=== PATIENT | male | born 1945 | race Caucasian/White ===

== ENCOUNTER 2023-07-18 20:30 | Inpatient (IN) | payer OTHER ==
[~2023-07-18] VITALS: Ht 167.6 cm; Wt 87.7 kg
[2023-07-18] MEDS ORDERED: ONDANSETRON 4 MG/2 ML VIAL IV PRN (21:30)
[2023-07-18] MEDS ORDERED: ZOLPIDEM 5 MG TABLET PO PRN (21:30)
[2023-07-18] MEDS ORDERED: MAGNESIUM HYDROXIDE 30 ML LIQUID UDC PO PRN (21:30)
[2023-07-18] MEDS ORDERED: REMEDY ESSENTIAL ZINC PASTE 113 GM TP PRN (21:30)
[2023-07-18] MEDS ORDERED: REMEDY ESSENTIAL ZINC PASTE 113 GM TOP PRN (21:45)
[2023-07-18] MEDS ORDERED: ACET325T53 PO (21:49)
[2023-07-18] MEDS ORDERED: ALBU2.5V13 NEB (21:49)
[2023-07-18] MEDS ORDERED: HEPA500034 SQ (21:49)
[2023-07-18] MEDS ORDERED: MEMA10TA PO (21:49)
[2023-07-18] MEDS ORDERED: NIFE20CA8 PO (21:49)
[2023-07-18] MEDS ORDERED: DONE23TA3 PO (21:49)
[2023-07-18] MEDS ORDERED: EPOE200012 IJ (21:49)
[2023-07-18] MEDS ORDERED: ASPI-495 PO (21:49)
[2023-07-18] MEDS ORDERED: ALBU2.5V13 IH (21:49)
[2023-07-18] MEDS ORDERED: MELA5TAB20 PO (21:49)
[2023-07-18] MEDS ORDERED: DICL100G31 TP (21:49)
[2023-07-18] MEDS ORDERED: LACT1CAP57 PO (21:49)
[2023-07-18] MEDS ORDERED: IPRA0.2S48 NEB ×2 (21:49)
[2023-07-18] MEDS ORDERED: PANT40TA49 PO (21:49)
[2023-07-18] MEDS ORDERED: LIDO30AD10 TP ×2 (21:49)
[2023-07-18] MEDS ORDERED: CYAN100085 PO (21:49)
[2023-07-18 21:57] VITALS: BP 142/81; TEMP 99.2; O2SAT 92
[2023-07-19 05:40] VITALS: BP 152/77; TEMP 97.7; O2SAT 94
[2023-07-19] MEDS: PANTOPRAZOLE SODIUM 40 MG TABLET.DR PO SCH (06:05)
[2023-07-19 06:31] LABS: BASOPHILS # (AUTO) 0.1 K/UL (0.0-0.2); BASOPHILS % (AUTO) 0.9 % (0.0-2.0); EOSINOPHILS % (AUTO) 0.7 % (0.0-7.0); HEMATOCRIT 28.2 % (36.7-47.1); HEMOGLOBIN 9.8 g/dL (12.5-16.3); LYMPHOCYTES # (AUTO) 0.8 K/uL (0.8-4.8); LYMPHOCYTES % (AUTO) 11.5 % (20.5-51.5); MEAN CORPUSCULAR HEMOGLOBIN 32.5 uug (23.8-33.4); MEAN CORPUSCULAR HGB CONC 35 g/dL (32.5-36.3); MEAN CORPUSCULAR VOLUME 93.9 fL (73.0-96.2); MONOCYTES # (AUTO) 0.6 K/uL (0.1-1.30); NEUTROPHILS # (AUTO) 5.4 K/uL (1.8-8.9); NEUTROPHILS % (AUTO) 77.9 % (38.5-71.5); PLATELET COUNT (AUTO) 300 K/uL (152-348); RED BLOOD CELL COUNT(AUTO) 3.01 MIL/uL (4.06-5.63); RED CELL DISTRIBUTION WIDTH 13.8 % (12.1-16.2)
[2023-07-19 06:46] LABS: CALCIUM 8.5 mg/dL (8.5-10.1); CARBON DIOXIDE 29 mmol/L (21-32); CHLORIDE 104 mmol/L (98-107); CREATININE 2.3 mg/dL (0.6-1.3); GLUCOSE 107 mg/dL (74-106); MAGNESIUM 1.8 mg/dL (1.8-2.4); PHOSPHOROUS 3.1 mg/dL (2.5-4.9); POTASSIUM 3.7 mmol/L (3.5-5.1); SODIUM SERUM 139 mmol/L (136-145); UREA NITROGEN, BLOOD 36 mg/dL (7-18)
[2023-07-19 06:56] LABS: DIFFERENTIAL COMMENT 1
[2023-07-19 07:29] LABS: CHOLESTEROL 75 mg/dL (<200); HDL CHOLESTEROL 28 mg/dL (40-60); TRIGLYCERIDES 80 MG/DL (30-150)
[2023-07-19 08:00] VITALS: BP 144/79; TEMP 99.1; O2SAT 94
[2023-07-19] MEDS: HYDROCODONE/APAP 5-325MG TABLET PO PRN (09:16)
[2023-07-19] MEDS ORDERED: MELA3CAP2 PO (10:28)
[2023-07-19] MEDS ORDERED: MEMA5TAB PO (10:38)
[2023-07-19] MEDS ORDERED: DONE10TA44 PO (10:40)
[2023-07-19 16:13] VITALS: BP 148/67; TEMP 98.4; O2SAT 92
[2023-07-19] MEDS ORDERED: EPOETIN ALFA 20,000 UNIT/ML ML IJ SCH (16:45)
[2023-07-19] MEDS ORDERED: ALBUTEROL SULFATE 2.5 MG/3 ML NEBU NEB PRN (16:45)
[2023-07-19] MEDS ORDERED: HOME MED MISCELLANEOUS XX SCH ×2 (16:45)
[2023-07-19] MEDS ORDERED: ACETAMINOPHEN 325 MG TABLET-SA PATIENTS-PAIN ONLY PO PRN (16:45)
[2023-07-19] MEDS: CULTURELLE CAPSULE PO SCH (17:22)
[2023-07-19] MEDS: NIFEdipine XL 30 MG TABSR PO SCH (17:22)
[2023-07-19 19:58] VITALS: BP 119/70; TEMP 98.1; O2SAT 94
[2023-07-19] MEDS: DOCUSATE SODIUM 100 MG CAPSULE PO SCH (20:37)
[2023-07-19] MEDS: DONEPEZIL 10 MG TABLET PO SCH (20:37)
[2023-07-19] MEDS: HEPARIN SODIUM,PORCINE 5,000 UNITS/ML VIAL SQ SCH (20:38)
[2023-07-20 05:33] VITALS: BP 135/70; TEMP 98.6; O2SAT 95
[2023-07-20 06:37] LABS: BASOPHILS # (AUTO) 0.1 K/UL (0.0-0.2); EOSINOPHILS # (AUTO) 0.1 K/uL (0.0-0.7); EOSINOPHILS % (AUTO) 0.8 % (0.0-7.0); HEMATOCRIT 27.3 % (36.7-47.1); HEMOGLOBIN 9.4 g/dL (12.5-16.3); LYMPHOCYTES % (AUTO) 13.1 % (20.5-51.5); MEAN CORPUSCULAR HEMOGLOBIN 32.2 uug (23.8-33.4); MEAN CORPUSCULAR HGB CONC 34 g/dL (32.5-36.3); MEAN CORPUSCULAR VOLUME 93.3 fL (73.0-96.2); MONOCYTES # (AUTO) 0.6 K/uL (0.1-1.30); MONOCYTES % (AUTO) 8.7 % (0.0-11.0); NEUTROPHILS # (AUTO) 5.7 K/uL (1.8-8.9); NEUTROPHILS % (AUTO) 76.4 % (38.5-71.5); PLATELET COUNT (AUTO) 296 K/uL (152-348); RED BLOOD CELL COUNT(AUTO) 2.92 MIL/uL (4.06-5.63); RED CELL DISTRIBUTION WIDTH 13.8 % (12.1-16.2); WHITE BLOOD COUNT (AUTO) 7.5 K/uL (3.6-10.2)
[2023-07-20] MEDS: PANTOPRAZOLE SODIUM 40 MG TABLET.DR PO SCH (06:40)
[2023-07-20 06:50] LABS: ALANINE AMINOTRANSFERASE 29 U/L (16-63); ALBUMIN 1.7 g/dL (3.4-5.0); ALKALINE PHOSPHATASE 98 U/L (50-136); ASPARTATE AMINOTRANSFERASE 22 U/L (15-37); BILIRUBIN,TOTAL 0.3 mg/dL (0.2-1.0); CALCIUM 8.7 mg/dL (8.5-10.1); CARBON DIOXIDE 28 mmol/L (21-32); CHLORIDE 103 mmol/L (98-107); CREATINE KINASE, TOTAL 20 U/L (39-308); CREATININE 2.3 mg/dL (0.6-1.3); GLUCOSE 107 mg/dL (74-106); MAGNESIUM 1.7 mg/dL (1.8-2.4); PHOSPHOROUS 3.6 mg/dL (2.5-4.9); POTASSIUM 3.6 mmol/L (3.5-5.1); SODIUM SERUM 137 mmol/L (136-145); TOTAL PROTEIN, SERUM 7.3 g/dL (6.4-8.2); UREA NITROGEN, BLOOD 34 mg/dL (7-18)
[2023-07-20 07:05] LABS: DIFFERENTIAL COMMENT 1
[2023-07-20 07:38] LABS: *BILIRUBIN,URIN NEGATIVE (NEGATIVE); *CLARITY,URINE CLEAR (CLEAR); *COLOR,URINE YELLOW (YELLOW); *KETONES,URINE NEGATIVE (NEGATIVE); *PROTEIN,URINE 1+ (NEGATIVE); LEUKOCYTE ESTERASE ,URINE NEGATIVE (NEGATIVE); NITRITE, URINE NEGATIVE (NEGATIVE); UGLUCOSE NEGATIVE (NEGATIVE)
[2023-07-20 07:42] LABS: *BLOOD, URINE TRACE (NEGATIVE)
[2023-07-20 07:54] LABS: *CREATININE,URINE 107.9 mg/dL (30-125); *URINE TOTAL PROTEIN RANDOM 53.9 mg/dL (<150/24HR)
[2023-07-20 07:55] VITALS: O2SAT 95
[2023-07-20 08:00] VITALS: BP 122/77; TEMP 100.7; O2SAT 94
[2023-07-20] MEDS: OXYCODONE/APAP 5-325 MG TABLET PO SCH ×2 (08:25→20:16)
[2023-07-20] MEDS: MEMANTINE HCL 5 MG TABLET PO SCH (08:25)
[2023-07-20] MEDS: CULTURELLE CAPSULE PO SCH ×2 (08:25→17:29)
[2023-07-20] MEDS: LIDOCAINE 5% PATCH TD SCH (08:26)
[2023-07-20] MEDS: NIFEdipine XL 30 MG TABSR PO SCH (08:26)
[2023-07-20] MEDS: ACETAMINOPHEN 325 MG TABLET PO PRN (08:26)
[2023-07-20] MEDS: ASPIRIN EC 81 MG TABLET.DR PO SCH (08:26)
[2023-07-20] MEDS: CYANOCOBALAMIN 1,000 MCG TABLET PO SCH (08:26)
[2023-07-20] MEDS: HEPARIN SODIUM,PORCINE 5,000 UNITS/ML VIAL SQ SCH ×2 (08:28→20:17)
[2023-07-20] MEDS ORDERED: PIPERACILLIN/TAZO 2.25 G in IV DEXTROSE 5% 50 ML IV SCH (09:00)
[2023-07-20] MEDS ORDERED: PANTOPRAZOLE SODIUM 40 MG TABLET.DR PO SCH (09:00)
[2023-07-20] MEDS ORDERED: MAGNESIUM OXIDE 400 MG TABLET PO ONE (10:00)
[2023-07-20 10:27] LABS: RBC,URINE 0-3 /HPF (0-3); WBC,URINE 0-3 /HPF (0-3)
[2023-07-20] MEDS ORDERED: PRAV10TA40 PO (14:27)
[2023-07-20 16:00] VITALS: BP 101/50; TEMP 98.2; O2SAT 95
[2023-07-20] MEDS: ENSURE ENLIVE (VAN) 240 ML LIQUID PO SCH (17:31)
[2023-07-20 19:44] VITALS: BP 113/65; TEMP 98.3; O2SAT 95
[2023-07-20] MEDS: DOCUSATE SODIUM 100 MG CAPSULE PO SCH (20:15)
[2023-07-20] MEDS: DONEPEZIL 10 MG TABLET PO SCH (20:16)
[2023-07-21 04:36] VITALS: BP 119/62; TEMP 98.5; O2SAT 94
[2023-07-21] MEDS: PANTOPRAZOLE SODIUM 40 MG TABLET.DR PO SCH (06:43)
[2023-07-21 07:29] LABS: BASOPHILS # (AUTO) 0.1 K/UL (0.0-0.2); BASOPHILS % (AUTO) 1.2 % (0.0-2.0); EOSINOPHILS # (AUTO) 0.1 K/uL (0.0-0.7); EOSINOPHILS % (AUTO) 1.5 % (0.0-7.0); HEMATOCRIT 26.8 % (36.7-47.1); HEMOGLOBIN 9.2 g/dL (12.5-16.3); LYMPHOCYTES # (AUTO) 1.1 K/uL (0.8-4.8); LYMPHOCYTES % (AUTO) 14.5 % (20.5-51.5); MEAN CORPUSCULAR HEMOGLOBIN 32.4 uug (23.8-33.4); MEAN CORPUSCULAR HGB CONC 34 g/dL (32.5-36.3); MEAN CORPUSCULAR VOLUME 94.2 fL (73.0-96.2); MONOCYTES # (AUTO) 0.7 K/uL (0.1-1.30); MONOCYTES % (AUTO) 8.7 % (0.0-11.0); NEUTROPHILS # (AUTO) 5.6 K/uL (1.8-8.9); NEUTROPHILS % (AUTO) 74.1 % (38.5-71.5); PLATELET COUNT (AUTO) 261 K/uL (152-348); RED BLOOD CELL COUNT(AUTO) 2.84 MIL/uL (4.06-5.63); RED CELL DISTRIBUTION WIDTH 13.4 % (12.1-16.2); WHITE BLOOD COUNT (AUTO) 7.5 K/uL (3.6-10.2)
[2023-07-21 07:45] VITALS: O2SAT 93
[2023-07-21 07:49] LABS: CALCIUM 8.3 mg/dL (8.5-10.1); CARBON DIOXIDE 32 mmol/L (21-32); CHLORIDE 104 mmol/L (98-107); CREATININE 2.5 mg/dL (0.6-1.3); GLUCOSE 103 mg/dL (74-106); POTASSIUM 4.2 mmol/L (3.5-5.1); SODIUM SERUM 140 mmol/L (136-145); UREA NITROGEN, BLOOD 41 mg/dL (7-18)
[2023-07-21 07:55] LABS: DIFFERENTIAL COMMENT 1
[2023-07-21 08:00] VITALS: BP 134/59; TEMP 98.5; O2SAT 93
[2023-07-21] MEDS: ENSURE ENLIVE (VAN) 240 ML LIQUID PO SCH ×2 (08:00→16:53)
[2023-07-21 08:06] LABS: PTH, INTACT 41 pg/mL (15-65)
[2023-07-21] MEDS: ASPIRIN EC 81 MG TABLET.DR PO SCH (09:00)
[2023-07-21] MEDS: OXYCODONE/APAP 5-325 MG TABLET PO SCH ×2 (09:00→10:00)
[2023-07-21] MEDS ORDERED: MAGNESIUM OXIDE 400 MG TABLET PO ONE (09:30)
[2023-07-21] MEDS: LIDOCAINE 5% PATCH TD SCH (10:12)
[2023-07-21] MEDS: CULTURELLE CAPSULE PO SCH ×2 (10:14→16:53)
[2023-07-21] MEDS: NIFEdipine XL 30 MG TABSR PO SCH (10:15)
[2023-07-21] MEDS: CYANOCOBALAMIN 1,000 MCG TABLET PO SCH (10:16)
[2023-07-21] MEDS: DONEPEZIL 10 MG TABLET PO SCH ×2 (10:16→20:54)
[2023-07-21] MEDS: HEPARIN SODIUM,PORCINE 5,000 UNITS/ML VIAL SQ SCH ×2 (10:24→21:01)
[2023-07-21] MEDS: MEMANTINE HCL 5 MG TABLET PO SCH (10:25)
[2023-07-21 16:00] VITALS: BP 106/64; TEMP 100.3; O2SAT 93
[2023-07-21] MEDS: HYDROCODONE/APAP 5-325MG TABLET PO PRN (16:15)
[2023-07-21 20:36] VITALS: BP 122/62; TEMP 98.9; O2SAT 93
[2023-07-21] MEDS: DOCUSATE SODIUM 100 MG CAPSULE PO SCH (20:54)
[2023-07-22 04:20] VITALS: BP 140/74; TEMP 98.2; O2SAT 93
[2023-07-22] MEDS: PANTOPRAZOLE SODIUM 40 MG TABLET.DR PO SCH (06:21)
[2023-07-22 07:18] LABS: HEMATOCRIT 29.3 % (36.7-47.1); MEAN CORPUSCULAR HEMOGLOBIN 32.2 uug (23.8-33.4); MEAN CORPUSCULAR HGB CONC 34 g/dL (32.5-36.3); MEAN CORPUSCULAR VOLUME 94.1 fL (73.0-96.2); NEUTROPHILS # (AUTO) 9.1 K/uL (1.8-8.9); PLATELET COUNT (AUTO) 259 K/uL (152-348); RED BLOOD CELL COUNT(AUTO) 3.12 MIL/uL (4.06-5.63); RED CELL DISTRIBUTION WIDTH 13.6 % (12.1-16.2); WHITE BLOOD COUNT (AUTO) 9.1 K/uL (3.6-10.2)
[2023-07-22 07:31] LABS: DIFFERENTIAL COMMENT 1
[2023-07-22 07:34] LABS: CALCIUM 8.1 mg/dL (8.5-10.1); CARBON DIOXIDE 29 mmol/L (21-32); CHLORIDE 102 mmol/L (98-107); GLUCOSE 103 mg/dL (74-106); POTASSIUM 3.7 mmol/L (3.5-5.1); SODIUM SERUM 138 mmol/L (136-145); UREA NITROGEN, BLOOD 34 mg/dL (7-18)
[2023-07-22] MEDS: LIDOCAINE 5% PATCH TD SCH (08:09)
[2023-07-22] MEDS: HEPARIN SODIUM,PORCINE 5,000 UNITS/ML VIAL SQ SCH ×2 (08:12→20:36)
[2023-07-22] MEDS: CYANOCOBALAMIN 1,000 MCG TABLET PO SCH (08:12)
[2023-07-22] MEDS: MEMANTINE HCL 5 MG TABLET PO SCH (08:13)
[2023-07-22] MEDS: ASPIRIN EC 81 MG TABLET.DR PO SCH (08:13)
[2023-07-22] MEDS: NIFEdipine XL 30 MG TABSR PO SCH (08:13)
[2023-07-22] MEDS: CULTURELLE CAPSULE PO SCH ×2 (08:13→17:13)
[2023-07-22] MEDS: OXYCODONE/APAP 5-325 MG TABLET PO SCH ×2 (08:14→20:42)
[2023-07-22] MEDS: ENSURE ENLIVE (VAN) 240 ML LIQUID PO SCH ×2 (08:15→17:14)
[2023-07-22 11:06] LABS: A/G RATIO 0.5 (0.7-1.7); ALBUMIN 2.1 g/dL (2.9-4.4); ALPHA-1-GLOBULIN 0.3 g/dL (0.0-0.4); ALPHA-2-GLOBULIN 0.9 g/dL (0.4-1.0); GAMMA GLOBULIN 2.4 g/dL (0.4-1.8); GLOBULIN, TOTAL 4.6 g/dL (2.2-3.9); M-SPIKE Not Observed g/dL (Not Observed)
[2023-07-22 16:00] VITALS: BP 131/69; TEMP 97.6; O2SAT 93
[2023-07-22] MEDS: ACETAMINOPHEN 325 MG TABLET PO PRN (18:15)
[2023-07-22] MEDS: DOCUSATE SODIUM 100 MG CAPSULE PO SCH (20:34)
[2023-07-22] MEDS: DONEPEZIL 10 MG TABLET PO SCH (20:34)
[2023-07-22 20:50] VITALS: BP 109/61; TEMP 100.4; O2SAT 93
[2023-07-23 04:26] VITALS: BP 115/63; TEMP 98.7; O2SAT 94
[2023-07-23] MEDS: PANTOPRAZOLE SODIUM 40 MG TABLET.DR PO SCH (06:03)
[2023-07-23 07:48] LABS: BASOPHILS # (AUTO) 0.1 K/UL (0.0-0.2); BASOPHILS % (AUTO) 0.4 % (0.0-2.0); EOSINOPHILS % (AUTO) 0.1 % (0.0-7.0); HEMATOCRIT 28.5 % (36.7-47.1); HEMOGLOBIN 9.5 g/dL (12.5-16.3); LYMPHOCYTES # (AUTO) 1.6 K/uL (0.8-4.8); LYMPHOCYTES % (AUTO) 7.3 % (20.5-51.5); MEAN CORPUSCULAR HEMOGLOBIN 31.4 uug (23.8-33.4); MEAN CORPUSCULAR HGB CONC 33 g/dL (32.5-36.3); MEAN CORPUSCULAR VOLUME 94.1 fL (73.0-96.2); MONOCYTES # (AUTO) 1.3 K/uL (0.1-1.30); MONOCYTES % (AUTO) 5.7 % (0.0-11.0); NEUTROPHILS # (AUTO) 19.3 K/uL (1.8-8.9); NEUTROPHILS % (AUTO) 86.5 % (38.5-71.5); PLATELET COUNT (AUTO) 246 K/uL (152-348); RED BLOOD CELL COUNT(AUTO) 3.03 MIL/uL (4.06-5.63); RED CELL DISTRIBUTION WIDTH 13.5 % (12.1-16.2); WHITE BLOOD COUNT (AUTO) 22.3 K/uL (3.6-10.2)
[2023-07-23 07:55] LABS: CALCIUM 8.6 mg/dL (8.5-10.1); CARBON DIOXIDE 32 mmol/L (21-32); CHLORIDE 102 mmol/L (98-107); CREATININE 2.1 mg/dL (0.6-1.3); GLUCOSE 109 mg/dL (74-106); SODIUM SERUM 139 mmol/L (136-145); UREA NITROGEN, BLOOD 36 mg/dL (7-18)
[2023-07-23 08:00] VITALS: BP 137/71; TEMP 97.9; O2SAT 98
[2023-07-23 08:10] LABS: DIFFERENTIAL COMMENT 1
[2023-07-23] MEDS: OXYCODONE/APAP 5-325 MG TABLET PO SCH ×2 (09:43→20:48)
[2023-07-23] MEDS: CULTURELLE CAPSULE PO SCH ×2 (09:43→17:07)
[2023-07-23] MEDS: CYANOCOBALAMIN 1,000 MCG TABLET PO SCH (09:43)
[2023-07-23] MEDS: NIFEdipine XL 30 MG TABSR PO SCH (09:43)
[2023-07-23] MEDS: MEMANTINE HCL 5 MG TABLET PO SCH (09:43)
[2023-07-23] MEDS: ASPIRIN EC 81 MG TABLET.DR PO SCH (09:43)
[2023-07-23] MEDS: LIDOCAINE 5% PATCH TD SCH (09:44)
[2023-07-23] MEDS: HEPARIN SODIUM,PORCINE 5,000 UNITS/ML VIAL SQ SCH ×2 (09:57→20:54)
[2023-07-23] MEDS: ENSURE ENLIVE (VAN) 240 ML LIQUID PO SCH ×2 (09:59→17:07)
[2023-07-23] MEDS: HYDROCODONE/APAP 5-325MG TABLET PO PRN (13:46)
[2023-07-23 16:00] VITALS: BP 90/51; TEMP 98.5; O2SAT 93
[2023-07-23 20:18] VITALS: BP 95/43; TEMP 98.6; O2SAT 92
[2023-07-23] MEDS: DOCUSATE SODIUM 100 MG CAPSULE PO SCH (20:48)
[2023-07-23] MEDS: DONEPEZIL 10 MG TABLET PO SCH (20:48)
[2023-07-24 04:20] VITALS: BP 125/65; TEMP 98.6; O2SAT 94
[2023-07-24] MEDS: PANTOPRAZOLE SODIUM 40 MG TABLET.DR PO SCH (06:01)
[2023-07-24 07:11] LABS: BASOPHILS # (AUTO) 0.1 K/UL (0.0-0.2); BASOPHILS % (AUTO) 0.3 % (0.0-2.0); EOSINOPHILS # (AUTO) 0.1 K/uL (0.0-0.7); EOSINOPHILS % (AUTO) 0.4 % (0.0-7.0); HEMATOCRIT 28.7 % (36.7-47.1); HEMOGLOBIN 9.5 g/dL (12.5-16.3); LYMPHOCYTES # (AUTO) 1.4 K/uL (0.8-4.8); LYMPHOCYTES % (AUTO) 5.8 % (20.5-51.5); MEAN CORPUSCULAR HEMOGLOBIN 31.4 uug (23.8-33.4); MEAN CORPUSCULAR HGB CONC 33 g/dL (32.5-36.3); MEAN CORPUSCULAR VOLUME 94.5 fL (73.0-96.2); MONOCYTES % (AUTO) 4.4 % (0.0-11.0); NEUTROPHILS # (AUTO) 21.1 K/uL (1.8-8.9); NEUTROPHILS % (AUTO) 89.1 % (38.5-71.5); PLATELET COUNT (AUTO) 236 K/uL (152-348); RED BLOOD CELL COUNT(AUTO) 3.04 MIL/uL (4.06-5.63); RED CELL DISTRIBUTION WIDTH 13.8 % (12.1-16.2); WHITE BLOOD COUNT (AUTO) 23.6 K/uL (3.6-10.2)
[2023-07-24 07:20] LABS: DIFFERENTIAL COMMENT 1
[2023-07-24 07:24] LABS: AMMONIA < 10 umol/L (11-32)
[2023-07-24 07:31] LABS: ALANINE AMINOTRANSFERASE 19 U/L (16-63); ALBUMIN 1.8 g/dL (3.4-5.0); ALKALINE PHOSPHATASE 100 U/L (50-136); ASPARTATE AMINOTRANSFERASE 23 U/L (15-37); BILIRUBIN,TOTAL 0.3 mg/dL (0.2-1.0); CALCIUM 7.9 mg/dL (8.5-10.1); CARBON DIOXIDE 31 mmol/L (21-32); CHLORIDE 101 mmol/L (98-107); CREATININE 2.2 mg/dL (0.6-1.3); GLUCOSE 113 mg/dL (74-106); MAGNESIUM 1.6 mg/dL (1.8-2.4); PHOSPHOROUS 3.4 mg/dL (2.5-4.9); POTASSIUM 3.9 mmol/L (3.5-5.1); SODIUM SERUM 137 mmol/L (136-145); TOTAL PROTEIN, SERUM 7.7 g/dL (6.4-8.2); UREA NITROGEN, BLOOD 41 mg/dL (7-18)
[2023-07-24] MEDS: HEPARIN SODIUM,PORCINE 5,000 UNITS/ML VIAL SQ SCH ×2 (09:04→20:46)
[2023-07-24] MEDS: OXYCODONE/APAP 5-325 MG TABLET PO SCH ×2 (09:08→20:45)
[2023-07-24] MEDS: MEMANTINE HCL 5 MG TABLET PO SCH (09:08)
[2023-07-24] MEDS: ASPIRIN EC 81 MG TABLET.DR PO SCH (09:08)
[2023-07-24] MEDS: CULTURELLE CAPSULE PO SCH ×2 (09:08→17:25)
[2023-07-24] MEDS: CYANOCOBALAMIN 1,000 MCG TABLET PO SCH (09:09)
[2023-07-24] MEDS: LIDOCAINE 5% PATCH TD SCH (09:09)
[2023-07-24] MEDS: NIFEdipine XL 30 MG TABSR PO SCH (09:09)
[2023-07-24] MEDS: ENSURE ENLIVE (VAN) 240 ML LIQUID PO SCH ×2 (09:10→17:26)
[2023-07-24 11:42] VITALS: BP 122/75; TEMP 98.2; O2SAT 96
[2023-07-24] MEDS ORDERED: MAGNESIUM OXIDE 400 MG TABLET PO ONE (12:00)
[2023-07-24 15:02] VITALS: BP 97/50; TEMP 97.8; O2SAT 94
[2023-07-24] MEDS: HYDROCODONE/APAP 5-325MG TABLET PO PRN (16:19)
[2023-07-24 20:00] VITALS: BP 107/60; TEMP 98; O2SAT 94
[2023-07-24] MEDS: DONEPEZIL 10 MG TABLET PO SCH (20:44)
[2023-07-24] MEDS: DOCUSATE SODIUM 100 MG CAPSULE PO SCH (20:44)
[2023-07-24 21:04] VITALS: O2SAT 94
[2023-07-25 04:00] VITALS: BP 148/64; TEMP 97.9; O2SAT 94
[2023-07-25] MEDS: PANTOPRAZOLE SODIUM 40 MG TABLET.DR PO SCH (06:03)
[2023-07-25 06:50] LABS: BASOPHILS # (AUTO) 0.1 K/UL (0.0-0.2); BASOPHILS % (AUTO) 0.3 % (0.0-2.0); EOSINOPHILS # (AUTO) 0.1 K/uL (0.0-0.7); EOSINOPHILS % (AUTO) 0.8 % (0.0-7.0); HEMATOCRIT 24.7 % (36.7-47.1); HEMOGLOBIN 8.4 g/dL (12.5-16.3); LYMPHOCYTES # (AUTO) 1.2 K/uL (0.8-4.8); LYMPHOCYTES % (AUTO) 7.2 % (20.5-51.5); MEAN CORPUSCULAR HEMOGLOBIN 31.8 uug (23.8-33.4); MEAN CORPUSCULAR HGB CONC 34 g/dL (32.5-36.3); MEAN CORPUSCULAR VOLUME 93.5 fL (73.0-96.2); MONOCYTES # (AUTO) 0.6 K/uL (0.1-1.30); MONOCYTES % (AUTO) 3.6 % (0.0-11.0); NEUTROPHILS # (AUTO) 15.3 K/uL (1.8-8.9); NEUTROPHILS % (AUTO) 88.1 % (38.5-71.5); PLATELET COUNT (AUTO) 238 K/uL (152-348); RED BLOOD CELL COUNT(AUTO) 2.64 MIL/uL (4.06-5.63); RED CELL DISTRIBUTION WIDTH 13.5 % (12.1-16.2); WHITE BLOOD COUNT (AUTO) 17.4 K/uL (3.6-10.2)
[2023-07-25 07:03] LABS: CALCIUM 8.8 mg/dL (8.5-10.1); CARBON DIOXIDE 32 mmol/L (21-32); CHLORIDE 101 mmol/L (98-107); CREATININE 2.2 mg/dL (0.6-1.3); GLUCOSE 112 mg/dL (74-106); POTASSIUM 3.8 mmol/L (3.5-5.1); SODIUM SERUM 138 mmol/L (136-145); UREA NITROGEN, BLOOD 46 mg/dL (7-18)
[2023-07-25 07:09] LABS: DIFFERENTIAL COMMENT 1
[2023-07-25 07:52] VITALS: BP 115/58; TEMP 98.7; O2SAT 94
[2023-07-25] MEDS: MEMANTINE HCL 5 MG TABLET PO SCH (08:23)
[2023-07-25] MEDS: CULTURELLE CAPSULE PO SCH ×2 (08:23→16:50)
[2023-07-25] MEDS: NIFEdipine XL 30 MG TABSR PO SCH (08:25)
[2023-07-25] MEDS: OXYCODONE/APAP 5-325 MG TABLET PO SCH ×2 (08:25→20:54)
[2023-07-25] MEDS: CYANOCOBALAMIN 1,000 MCG TABLET PO SCH (08:25)
[2023-07-25] MEDS: ENSURE ENLIVE (VAN) 240 ML LIQUID PO SCH ×2 (08:25→16:50)
[2023-07-25] MEDS: ASPIRIN EC 81 MG TABLET.DR PO SCH (08:25)
[2023-07-25] MEDS: LIDOCAINE 5% PATCH TD SCH (08:26)
[2023-07-25] MEDS: HEPARIN SODIUM,PORCINE 5,000 UNITS/ML VIAL SQ SCH (08:28)
[2023-07-25 16:20] VITALS: BP 108/51; TEMP 97.9; O2SAT 94
[2023-07-25 20:00] VITALS: BP 101/67; TEMP 98.3; O2SAT 93
[2023-07-25] MEDS: DOCUSATE SODIUM 100 MG CAPSULE PO SCH (20:54)
[2023-07-25] MEDS: DONEPEZIL 10 MG TABLET PO SCH (20:54)
[2023-07-26 04:00] VITALS: BP 106/66; TEMP 98.4; O2SAT 94
[2023-07-26] MEDS: PANTOPRAZOLE SODIUM 40 MG TABLET.DR PO SCH (06:02)
[2023-07-26 07:47] VITALS: BP 130/70; TEMP 99.3; O2SAT 97
[2023-07-26] MEDS: ACETAMINOPHEN 325 MG TABLET PO PRN (09:23)
[2023-07-26 10:07] LABS: ADENOVIRUS Not Detected (Not Detected); CORONAVIRUS 229E Not Detected (Not Detected); CORONAVIRUS HKU1 Not Detected (Not Detected); CORONAVIRUS NL63 Not Detected (Not Detected); CORONAVIRUS OC43 Not Detected (Not Detected); NP BORDETELLA PERTUSIS Not Detected (Not Detected); NP CHLAMYDOPHILA PNEUMONIAE Not Detected (Not Detected); NP HUMAN METAPNEUMOVIRUS Not Detected (Not Detected); NP HUMAN RHINO/ENTERO VIRUS Not Detected (Not Detected); NP INFLUENZA A Not Detected (Not Detected); NP INFLUENZA A/H1 Not Detected (Not Detected); NP INFLUENZA A/H1-2009 Not Detected (Not Detected); NP INFLUENZA A/H3 Not Detected (Not Detected); NP INFLUENZA B Not Detected (Not Detected); NP MYCOPLASMA PNEUMONIAE Not Detected (Not Detected); NP PARAINFLUENZA 1 Not Detected (Not Detected); NP PARAINFLUENZA 2 Not Detected (Not Detected); NP PARAINFLUENZA 3 Not Detected (Not Detected); NP PARAINFLUENZA 4 Not Detected (Not Detected); NP RESPIRATORY SYNCYTIAL VIRUS Not Detected (Not Detected)
[2023-07-26] MEDS: MEMANTINE HCL 5 MG TABLET PO SCH (10:13)
[2023-07-26] MEDS: CULTURELLE CAPSULE PO SCH ×2 (10:13→17:55)
[2023-07-26] MEDS: OXYCODONE/APAP 5-325 MG TABLET PO SCH ×2 (10:13→20:59)
[2023-07-26] MEDS: CYANOCOBALAMIN 1,000 MCG TABLET PO SCH (10:13)
[2023-07-26] MEDS: LIDOCAINE 5% PATCH TD SCH (10:14)
[2023-07-26] MEDS: ASPIRIN EC 81 MG TABLET.DR PO SCH (10:18)
[2023-07-26] MEDS: NIFEdipine XL 30 MG TABSR PO SCH (10:19)
[2023-07-26 15:54] VITALS: BP 109/62; TEMP 98.5; O2SAT 96
[2023-07-26 20:00] VITALS: BP 152/57; TEMP 98.4; O2SAT 93
[2023-07-26] MEDS: DONEPEZIL 10 MG TABLET PO SCH (20:59)
[2023-07-26] MEDS: DOCUSATE SODIUM 100 MG CAPSULE PO SCH (20:59)
[2023-07-27 04:00] VITALS: BP 132/70; TEMP 98.6; O2SAT 93
[2023-07-27] MEDS: PANTOPRAZOLE SODIUM 40 MG TABLET.DR PO SCH (06:44)
[2023-07-27 07:46] LABS: BASOPHILS % (AUTO) 0.5 % (0.0-2.0); EOSINOPHILS # (AUTO) 0.3 K/uL (0.0-0.7); HEMATOCRIT 25.6 % (36.7-47.1); HEMOGLOBIN 8.7 g/dL (12.5-16.3); LYMPHOCYTES # (AUTO) 1.1 K/uL (0.8-4.8); LYMPHOCYTES % (AUTO) 11.8 % (20.5-51.5); MEAN CORPUSCULAR HGB CONC 34 g/dL (32.5-36.3); MONOCYTES # (AUTO) 0.7 K/uL (0.1-1.30); MONOCYTES % (AUTO) 7.6 % (0.0-11.0); NEUTROPHILS % (AUTO) 77.1 % (38.5-71.5); PLATELET COUNT (AUTO) 231 K/uL (152-348); RED BLOOD CELL COUNT(AUTO) 2.72 MIL/uL (4.06-5.63); RED CELL DISTRIBUTION WIDTH 13.8 % (12.1-16.2); WHITE BLOOD COUNT (AUTO) 9.1 K/uL (3.6-10.2)
[2023-07-27 07:50] LABS: DIFFERENTIAL COMMENT 1
[2023-07-27] MEDS: MEMANTINE HCL 5 MG TABLET PO SCH (09:00)
[2023-07-27] MEDS: CULTURELLE CAPSULE PO SCH ×2 (09:00→17:17)
[2023-07-27] MEDS: ASPIRIN EC 81 MG TABLET.DR PO SCH (09:01)
[2023-07-27] MEDS: OXYCODONE/APAP 5-325 MG TABLET PO SCH ×2 (09:01→20:48)
[2023-07-27] MEDS: LIDOCAINE 5% PATCH TD SCH (09:01)
[2023-07-27] MEDS: CYANOCOBALAMIN 1,000 MCG TABLET PO SCH (09:01)
[2023-07-27] MEDS: NIFEdipine XL 30 MG TABSR PO SCH (09:02)
[2023-07-27 12:00] VITALS: BP 131/63; TEMP 99; O2SAT 94
[2023-07-27 12:16] LABS: ALANINE AMINOTRANSFERASE 24 U/L (16-63); ALBUMIN 1.7 g/dL (3.4-5.0); ALKALINE PHOSPHATASE 98 U/L (50-136); ASPARTATE AMINOTRANSFERASE 32 U/L (15-37); BILIRUBIN,TOTAL 0.3 mg/dL (0.2-1.0); CALCIUM 7.8 mg/dL (8.5-10.1); CARBON DIOXIDE 26 mmol/L (21-32); CHLORIDE 103 mmol/L (98-107); CREATININE 1.5 mg/dL (0.6-1.3); GLUCOSE 97 mg/dL (74-106); MAGNESIUM 1.6 mg/dL (1.8-2.4); PHOSPHOROUS 3.3 mg/dL (2.5-4.9); POTASSIUM 4.3 mmol/L (3.5-5.1); SODIUM SERUM 138 mmol/L (136-145); UREA NITROGEN, BLOOD 29 mg/dL (7-18)
[2023-07-27 18:28] VITALS: TEMP 96.9
[2023-07-27 20:00] VITALS: BP 128/69; TEMP 99.3; O2SAT 93
[2023-07-27] MEDS: DOCUSATE SODIUM 100 MG CAPSULE PO SCH (20:48)
[2023-07-27] MEDS: DONEPEZIL 10 MG TABLET PO SCH (20:48)
[2023-07-28 04:00] VITALS: BP 124/63; TEMP 98.6; O2SAT 94
[2023-07-28] MEDS: PANTOPRAZOLE SODIUM 40 MG TABLET.DR PO SCH (06:18)
[2023-07-28 07:49] VITALS: BP 143/76; TEMP 98.8; O2SAT 94
[2023-07-28] MEDS: LIDOCAINE 5% PATCH TD SCH (09:27)
[2023-07-28] MEDS: CULTURELLE CAPSULE PO SCH ×2 (09:27→17:16)
[2023-07-28] MEDS: OXYCODONE/APAP 5-325 MG TABLET PO SCH ×2 (09:28→20:41)
[2023-07-28] MEDS: CYANOCOBALAMIN 1,000 MCG TABLET PO SCH (09:29)
[2023-07-28] MEDS: MEMANTINE HCL 5 MG TABLET PO SCH (09:29)
[2023-07-28] MEDS: ASPIRIN EC 81 MG TABLET.DR PO SCH (09:29)
[2023-07-28] MEDS: NIFEdipine XL 30 MG TABSR PO SCH (09:30)
[2023-07-28] MEDS ORDERED: GUAIFENESIN/DEXTROMETHORPHAN 5 ML UDC PO PRN (09:45)
[2023-07-28 16:00] VITALS: BP 112/60; TEMP 98.5; O2SAT 95
[2023-07-28] MEDS: DONEPEZIL 10 MG TABLET PO SCH (20:38)
[2023-07-28] MEDS: DOCUSATE SODIUM 100 MG CAPSULE PO SCH (20:38)
[2023-07-28 22:28] VITALS: BP 130/73; TEMP 98.2; O2SAT 99
[2023-07-29] MEDS: HYDROCODONE/APAP 5-325MG TABLET PO PRN (00:01)
[2023-07-29 04:51] VITALS: BP 139/52; TEMP 97.1; O2SAT 98
[2023-07-29] MEDS: PANTOPRAZOLE SODIUM 40 MG TABLET.DR PO SCH (06:47)
[2023-07-29 06:58] LABS: BASOPHILS % (AUTO) 0.6 % (0.0-2.0); EOSINOPHILS # (AUTO) 0.3 K/uL (0.0-0.7); EOSINOPHILS % (AUTO) 4.1 % (0.0-7.0); HEMATOCRIT 26.8 % (36.7-47.1); HEMOGLOBIN 9.2 g/dL (12.5-16.3); LYMPHOCYTES # (AUTO) 1.7 K/uL (0.8-4.8); LYMPHOCYTES % (AUTO) 21.8 % (20.5-51.5); MEAN CORPUSCULAR HEMOGLOBIN 32.1 uug (23.8-33.4); MEAN CORPUSCULAR HGB CONC 35 g/dL (32.5-36.3); MEAN CORPUSCULAR VOLUME 92.9 fL (73.0-96.2); MONOCYTES # (AUTO) 0.6 K/uL (0.1-1.30); MONOCYTES % (AUTO) 7.6 % (0.0-11.0); NEUTROPHILS % (AUTO) 65.9 % (38.5-71.5); PLATELET COUNT (AUTO) 264 K/uL (152-348); RED BLOOD CELL COUNT(AUTO) 2.88 MIL/uL (4.06-5.63); RED CELL DISTRIBUTION WIDTH 13.4 % (12.1-16.2); WHITE BLOOD COUNT (AUTO) 7.6 K/uL (3.6-10.2)
[2023-07-29 07:14] LABS: DIFFERENTIAL COMMENT 1
[2023-07-29 07:15] LABS: ALBUMIN 1.8 g/dL (3.4-5.0); BILIRUBIN,TOTAL 0.4 mg/dL (0.2-1.0); CALCIUM 8.1 mg/dL (8.5-10.1); CREATININE 1.3 mg/dL (0.6-1.3); MAGNESIUM 1.4 mg/dL (1.8-2.4); PHOSPHOROUS 3.1 mg/dL (2.5-4.9); POTASSIUM 3.5 mmol/L (3.5-5.1); TOTAL PROTEIN, SERUM 7.3 g/dL (6.4-8.2)
[2023-07-29 08:00] VITALS: BP 118/68; TEMP 98.3; O2SAT 95
[2023-07-29] MEDS: CULTURELLE CAPSULE PO SCH ×2 (10:12→18:45)
[2023-07-29] MEDS: NIFEdipine XL 30 MG TABSR PO SCH (10:13)
[2023-07-29] MEDS: LIDOCAINE 5% PATCH TD SCH (10:13)
[2023-07-29] MEDS: MEMANTINE HCL 5 MG TABLET PO SCH (10:13)
[2023-07-29] MEDS: ASPIRIN EC 81 MG TABLET.DR PO SCH (10:13)
[2023-07-29] MEDS: OXYCODONE/APAP 5-325 MG TABLET PO SCH ×3 (10:15→20:51)
[2023-07-29] MEDS: MAGNESIUM OXIDE 400 MG TABLET PO SCH ×2 (15:45→18:58)
[2023-07-29] MEDS: CYANOCOBALAMIN 1,000 MCG TABLET PO SCH (15:46)
[2023-07-29 16:35] VITALS: BP 125/62; TEMP 97.8; O2SAT 92
[2023-07-29] MEDS: DOCUSATE SODIUM 100 MG CAPSULE PO SCH (20:48)
[2023-07-29] MEDS: DONEPEZIL 10 MG TABLET PO SCH (20:51)
[2023-07-30 04:55] VITALS: BP 122/50; TEMP 98; O2SAT 96
[2023-07-30] MEDS: PANTOPRAZOLE SODIUM 40 MG TABLET.DR PO SCH (06:14)
[2023-07-30 08:00] VITALS: BP 125/67; TEMP 98.5; O2SAT 93
[2023-07-30 08:25] VITALS: O2SAT 97
[2023-07-30] MEDS: LIDOCAINE 5% PATCH TD SCH (08:30)
[2023-07-30] MEDS: CULTURELLE CAPSULE PO SCH ×2 (08:30→16:30)
[2023-07-30] MEDS: CYANOCOBALAMIN 1,000 MCG TABLET PO SCH (08:30)
[2023-07-30] MEDS: NIFEdipine XL 30 MG TABSR PO SCH (08:31)
[2023-07-30] MEDS: ASPIRIN EC 81 MG TABLET.DR PO SCH (08:31)
[2023-07-30] MEDS: MEMANTINE HCL 5 MG TABLET PO SCH (08:31)
[2023-07-30] MEDS: HYDROCODONE/APAP 5-325MG TABLET PO PRN (09:23)
[2023-07-30 16:30] VITALS: BP 106/64; TEMP 98; O2SAT 97
[2023-07-30 20:00] VITALS: BP 113/54; TEMP 98.1; O2SAT 95
[2023-07-30] MEDS: DONEPEZIL 10 MG TABLET PO SCH (21:01)
[2023-07-30] MEDS: DOCUSATE SODIUM 100 MG CAPSULE PO SCH (21:02)
[2023-07-30] MEDS: OXYCODONE/APAP 5-325 MG TABLET PO SCH (21:06)
[2023-07-31] MEDS: PANTOPRAZOLE SODIUM 40 MG TABLET.DR PO SCH (06:55)
[2023-07-31 07:45] VITALS: BP 112/70; TEMP 98.4; O2SAT 97
[2023-07-31] MEDS: LIDOCAINE 5% PATCH TD SCH (08:28)
[2023-07-31] MEDS: MEMANTINE HCL 5 MG TABLET PO SCH (08:28)
[2023-07-31] MEDS: CYANOCOBALAMIN 1,000 MCG TABLET PO SCH (08:29)
[2023-07-31] MEDS: CULTURELLE CAPSULE PO SCH ×2 (08:29→17:39)
[2023-07-31] MEDS: NIFEdipine XL 30 MG TABSR PO SCH (08:29)
[2023-07-31] MEDS: ASPIRIN EC 81 MG TABLET.DR PO SCH (08:29)
[2023-07-31] MEDS: NEPRO (VANILLA) 237 ML CAN PO SCH (08:35)
[2023-07-31] MEDS: OXYCODONE/APAP 5-325 MG TABLET PO SCH ×2 (08:38→21:06)
[2023-07-31] MEDS ORDERED: TRIAMCINOLONE ACETONIDE 40 MG/1 ML VIAL IM ONE (11:30)
[2023-07-31] MEDS ORDERED: LIDOCAINE HCL 1% 20 ML VIAL IJ PRN (11:30)
[2023-07-31] MEDS ORDERED: IV NORMAL SALINE 250 ML IV ONE (11:45)
[2023-07-31 15:17] VITALS: BP 119/62; TEMP 98.4; O2SAT 95
[2023-07-31 20:00] VITALS: BP 119/69; TEMP 98.2; O2SAT 94
[2023-07-31] MEDS: DONEPEZIL 10 MG TABLET PO SCH (21:06)
[2023-07-31] MEDS: DOCUSATE SODIUM 100 MG CAPSULE PO SCH (21:06)
[2023-08-01 04:00] VITALS: BP 121/58; TEMP 98.2; O2SAT 97
[2023-08-01] MEDS: PANTOPRAZOLE SODIUM 40 MG TABLET.DR PO SCH (06:19)
[2023-08-01 07:15] LABS: BASOPHILS % (AUTO) 0.3 % (0.0-2.0); HEMATOCRIT 27.3 % (36.7-47.1); HEMOGLOBIN 9.5 g/dL (12.5-16.3); LYMPHOCYTES # (AUTO) 0.7 K/uL (0.8-4.8); LYMPHOCYTES % (AUTO) 12.1 % (20.5-51.5); MEAN CORPUSCULAR HGB CONC 35 g/dL (32.5-36.3); MEAN CORPUSCULAR VOLUME 92.1 fL (73.0-96.2); MONOCYTES # (AUTO) 0.2 K/uL (0.1-1.30); MONOCYTES % (AUTO) 3.9 % (0.0-11.0); NEUTROPHILS # (AUTO) 4.5 K/uL (1.8-8.9); NEUTROPHILS % (AUTO) 83.7 % (38.5-71.5); PLATELET COUNT (AUTO) 298 K/uL (152-348); RED BLOOD CELL COUNT(AUTO) 2.96 MIL/uL (4.06-5.63); RED CELL DISTRIBUTION WIDTH 13.3 % (12.1-16.2); WHITE BLOOD COUNT (AUTO) 5.4 K/uL (3.6-10.2)
[2023-08-01 07:24] LABS: DIFFERENTIAL COMMENT 1
[2023-08-01 07:33] LABS: CARBON DIOXIDE 30 mmol/L (21-32); CHLORIDE 103 mmol/L (98-107); CREATININE 1.2 mg/dL (0.6-1.3); GLUCOSE 138 mg/dL (74-106); MAGNESIUM 1.6 mg/dL (1.8-2.4); PHOSPHOROUS 2.5 mg/dL (2.5-4.9); POTASSIUM 4.4 mmol/L (3.5-5.1); SODIUM SERUM 139 mmol/L (136-145); UREA NITROGEN, BLOOD 17 mg/dL (7-18)
[2023-08-01 08:06] VITALS: BP 127/67; TEMP 98.6; O2SAT 95
[2023-08-01] MEDS: LIDOCAINE 5% PATCH TD SCH (09:17)
[2023-08-01] MEDS: CULTURELLE CAPSULE PO SCH ×2 (09:17→18:26)
[2023-08-01] MEDS: ASPIRIN EC 81 MG TABLET.DR PO SCH (09:18)
[2023-08-01] MEDS: NIFEdipine XL 30 MG TABSR PO SCH (09:18)
[2023-08-01] MEDS: CYANOCOBALAMIN 1,000 MCG TABLET PO SCH (09:19)
[2023-08-01] MEDS: OXYCODONE/APAP 5-325 MG TABLET PO SCH ×2 (09:19→20:51)
[2023-08-01] MEDS: MEMANTINE HCL 5 MG TABLET PO SCH (09:19)
[2023-08-01] MEDS: NEPRO (VANILLA) 237 ML CAN PO SCH (09:23)
[2023-08-01] MEDS ORDERED: MAGNESIUM OXIDE 400 MG TABLET PO ONE (12:45)
[2023-08-01] MEDS: HYDROCODONE/APAP 5-325MG TABLET PO PRN (14:42)
[2023-08-01 15:13] VITALS: BP 121/66; TEMP 98.2; O2SAT 98
[2023-08-01 20:00] VITALS: BP 127/70; TEMP 97.9; O2SAT 95
[2023-08-01] MEDS: DONEPEZIL 10 MG TABLET PO SCH (20:51)
[2023-08-01] MEDS: DOCUSATE SODIUM 100 MG CAPSULE PO SCH (20:51)
[2023-08-02 04:00] VITALS: BP 133/52; TEMP 98.2; O2SAT 95
[2023-08-02] MEDS: PANTOPRAZOLE SODIUM 40 MG TABLET.DR PO SCH (06:46)
[2023-08-02] MEDS: NIFEdipine XL 30 MG TABSR PO SCH (08:34)
[2023-08-02] MEDS: LIDOCAINE 5% PATCH TD SCH (08:34)
[2023-08-02] MEDS: CYANOCOBALAMIN 1,000 MCG TABLET PO SCH (08:34)
[2023-08-02] MEDS: MEMANTINE HCL 5 MG TABLET PO SCH (08:34)
[2023-08-02] MEDS: OXYCODONE/APAP 5-325 MG TABLET PO SCH (08:34)
[2023-08-02] MEDS: ASPIRIN EC 81 MG TABLET.DR PO SCH (08:34)
[2023-08-02] MEDS: CULTURELLE CAPSULE PO SCH ×2 (08:34→17:02)
[2023-08-02] MEDS: NEPRO (VANILLA) 237 ML CAN PO SCH (08:35)
[2023-08-02 08:41] VITALS: BP 136/70; TEMP 98.7; O2SAT 96
[2023-08-02] MEDS ORDERED: DOCU-141 PO (10:10)
[2023-08-02] MEDS ORDERED: CYAN-51 PO (10:10)
[2023-08-02] MEDS ORDERED: ALBU2.5V7 NEB (10:10)
[2023-08-02] MEDS ORDERED: PANT40TA49 PO (10:10)
[2023-08-02 16:23] VITALS: BP 107/67; TEMP 98; O2SAT 98
== END 2023-08-02 19:22 | disposition home health service (06) | DRG 947 ==
PROVIDERS: ADMIT Physical Medicine & Rehabilitation Pain Medicine; ATTEND Physical Medicine & Rehabilitation Pain Medicine
DX: R53.1 Weakness (principal); E43 Unspecified severe protein-calorie malnutrition; G92.8 Other toxic encephalopathy; N17.9 Acute kidney failure, unspecified; N18.4 Chronic kidney disease, stage 4 (severe); M62.82 Rhabdomyolysis; D68.59 Other primary thrombophilia; J98.11 Atelectasis; R78.81 Bacteremia; J90 Pleural effusion, not elsewhere classified; E53.8 Deficiency of other specified B group vitamins; F03.90 Unspecified dementia, unspecified severity, without behavioral disturbance, psychotic disturbance, mood disturbance, and anxiety; R29.6 Repeated falls; Z91.81 History of falling; Z74.01 Bed confinement status; Z68.31 Body mass index [BMI] 31.0-31.9, adult; B95.1 Streptococcus, group B, as the cause of diseases classified elsewhere; I13.10 Hypertensive heart and chronic kidney disease without heart failure, with stage 1 through stage 4 chronic kidney disease, or unspecified chronic kidney disease; E66.01 Morbid (severe) obesity due to excess calories; E88.09 Other disorders of plasma-protein metabolism, not elsewhere classified; I25.10 Atherosclerotic heart disease of native coronary artery without angina pectoris; I25.2 Old myocardial infarction; I70.0 Atherosclerosis of aorta; K56.41 Fecal impaction; M54.50 Low back pain, unspecified; M19.90 Unspecified osteoarthritis, unspecified site; M48.061 Spinal stenosis, lumbar region without neurogenic claudication; R26.9 Unspecified abnormalities of gait and mobility; D63.1 Anemia in chronic kidney disease; M48.54XD Collapsed vertebra, not elsewhere classified, thoracic region, subsequent encounter for fracture with routine healing; M81.0 Age-related osteoporosis without current pathological fracture; R73.03 Prediabetes; Z79.82 Long term (current) use of aspirin; R34 Anuria and oliguria
CPT/HCPCS: 36415; 71045; 71250; 83735; 83970; 84100; 84155; 84165; 84300; 85025; 87040; 93307; 97535-GO-CO; A6209; A6213; C1758; J1644; J3301; J3490